=== PATIENT | male | born 1950 | race Caucasian/White ===

== ENCOUNTER 2017-05-31 08:21 | Day surgery (SDC) | payer MEDICARE, BC ==
[~2017-05-31 08:21] MED LIST: RINGER'S SOLUTION,LACTATED 1,000 ML IV PRN
[2017-05-31] MEDS: RINGER'S SOLUTION,LACTATED 1,000 ML IV ONE (08:56)
--- NOTE | 2017-05-31 10:29 | OR ---
Operative Report - Dictated Report Narrative: Date: 05/31/2017 Preoperative diagnosis: Screening for colon cancer postoperative diagnosis: Polyp at 80 cm and 10 cm, severe alcantara colonic diverticulosis, small hypertrophied anal papilla Procedure: Total colonoscopy with biopsy Staff surgeon: Travis Gallardo MD Anesthesia: MAC per [facility] EBL: Minimal Specimens: Polyp at 80 cm, polyp at 10 cm Description of procedure: After informed consent and appropriate sedation the patient was placed in the left lateral decubitus position. Flexible fiberoptic video colonoscope was introduced and advanced under direct vision without difficulty to the cecum. Usual landmarks were identified. Preparation was good and excellent views were obtained. The findings were of an severe alcantara colonic diverticulosis, otherwise a normal cecum, ascending colon, hepatic flexure, transverse colon with the exception of a small sessile polyp less than 5 mm which was biopsied with cold forceps and then destroyed with electrocautery, normal splenic flexure, normal descending colon, normal sigmoid colon, rectum demonstrated a small sessile polyp less than 5 cm that was biopsied with cold forceps and then destroyed with electrocautery. Retroflex view showed a small hypertrophied anal anal papilla. The mucosal collar, vasculature, and texture were normal throughout. No suspicious masses were seen. The patient tolerated procedure well without apparent complications and was discharged from the endoscopy suite in stable condition.
[2017-05-31 11:05] VITALS: BP 133/63
== END 2017-05-31 08:22 | disposition home or self-care (01) ==
LOC: AMB 08:21
PROVIDERS: ATTEND Specialist
PROC: 0DBL8ZX Excision of Transverse Colon, Via Natural or Artificial Opening Endoscopic, Diagnostic (ICD-10-PCS; principal; 2017-05-31)
DX: D12.9 Benign neoplasm of anus and anal canal; K57.30 Diverticulosis of large intestine without perforation or abscess without bleeding; Z12.11 Encounter for screening for malignant neoplasm of colon; K63.5 Polyp of colon; Z86.010 Personal history of colon polyps